=== PATIENT | female | born 1935 | race Caucasian/White ===

== ENCOUNTER → 2016-09-29 | Outpatient (CLI) | payer MEDICARE ==
[~2016-09-29] MED LIST: ACETAMINOPHEN325 MG PO; ADVAIR 250-501 EACH IH; AL-MAG HYDROX-S30 M1 PO; ALBUTEROL 0.5ML IH; ALPRAZOLAM PO; ALPRAZOLAM0.5 MG PO; ASPIRIN PO; ASPIRIN81 M2 PO; ATROVENT NASAL15 ML; AUGMENTIN PO; CALCIUM + D 6001 TA1 PO; CENTRUM SILVER PO; CORGARD PO; DIOVAN HCT 80/11 TAB PO; FISH OIL 1,2001 EAC1 PO; GUAIFENESIN LA600 M1 PO; HARD NAILS2500 MCG PO; HCTZ PO; HYDROCHLOROTHIA25 MG PO; LASIX PO; LEVAQUIN750 MG PO; LOMOTIL TABLET1 TAB PO; LORTAB 10/500 T1 TAB PO; MORPHINE SULFAT30 M3 PO; OMEPRAZOLE40 MG PO; OXYGEN NS; PANTOPRAZOLE SO40 MG PO; PAXIL PO; PERCOCET 10/3251 TAB PO; PRILOSEC40 MG PO; PROAIR HFA8.5 GM IH; REGLAN5 MG PO; SPIRIVA18 MCG INH; SUPER B COMPLEX1 CAP PO; VICODIN 5/500 T1 TAB PO; VITAMIN B12-FO1 EACH PO; WATER PILL; ZANAFLEX4 M1 PO; [UNRECOGNIZED DRUG - OTHER] PO
--- NOTE | ~2016-09-29 | BD1 ---
[facility] A Service of [facility] & [facility] RADIOLOGY TEXT RESULTS PATIENT: SHAKIR HILARIO LOCATION: [facility] : 37 UNIT #: [id number] AGE: [address]: Betsy Fernandez MD SEX: F ORDER DR: [id number] [facility] [address] [facility]. [place], [place] [address] [id number] O MR#: [id number] #: [id number] NAME: SHAKIR HILARIO : 1935 SEX: F STUDY DATE/TIME: 09/29/2016 11:58 UNIT: [facility] ROOM: STUDY DESCRIPTION: BD Dexa Bone Dens 1+ Site Attending Physician: Betsy Fernandez M.D. Referring Physician: Betsy Fernandez M.D. Ordering Physician: Betsy Fernandez M.D. Primary Care Physician: Betsy Fernandez M.D. MEDICAL IMAGING REPORT This report is preliminary unless electronic signature is present EXAM DXA scan, 09/29/2016 HISTORY Status post menopause with no hormone replacement therapy. Osteopenia. Smoking history. Fracture of arm in last 10 years. FINDINGS Bone mineral density in the lumbar spine from L1-L4 was 0.914 g/cm2 which is 1.2 standard deviations below the mean when compared with the young adult reference population which is characteristic of osteopenia. This is 1.5 standard deviations above the mean when compared to the age-matched population. Bone mineral density in the left femoral neck was 0.694 g/cm2 which is 1.4 standard deviations below the mean when compared to the young adult reference population which is characteristic of osteopenia. This is 0.9 standard deviations above the mean when compared to the age-matched population. IMPRESSION Bone mineral density in the lumbar spine and left hip characteristic of osteopenia. Dictated by... Yoshi Schwartz M.D. THIS IS AN ELECTRONICALLY VERIFIED REPORT Yoshi Schwartz M.D. at 09/30/2016 2:10 PM BOBBY/shant TD: 09/29/2016 15:07 [facility] A Service of [facility] & [facility] RADIOLOGY TEXT RESULTS PATIENT: SHAKIR HILARIO LOCATION: [facility] : 37 UNIT #: [id number] AGE: [address]: Betsy Fernandez MD SEX: F ORDER DR: JOB #: [id number] MEDICAL IMAGING REPORT Page 1 of 1 COPY
--- NOTE | ~2016-09-29 | MY11 ---
[facility] A Service [facility] RADIOLOGY TEXT RESULTS PATIENT: SHAKIR HILARIO LOCATION: [facility] : 37 UNIT #: [id number] AGE: [address]: Betsy Fernandez MD SEX: F ORDER DR: [id number] [facility]. [place], [place] [address] [id number] O MR#: [id number] Acc #: [id number] NAME: SHAKIR HILARIO : 1935 SEX: F STUDY DATE/TIME: 09/29/2016 12:07 UNIT: [facility] ROOM: STUDY DESCRIPTION: MY Mammogram Screening Dig Jefry Attending Physician: Betsy Fernandez M.D. Referring Physician: Betsy Fernandez M.D. Ordering Physician: Betsy Fernandez M.D. Primary Care Physician: Betsy Fernandez M.D. MEDICAL IMAGING REPORT This report is preliminary unless electronic signature is present EXAM Bilateral digital screening mammogram with CAD 09/29/2016 INDICATIONS 81-year-old female for routine screening. No reported problems no personal or family history of breast cancer. No surgeries. TECHNIQUE CC and MLO views of the breasts were obtained and reviewed with an FDA-approved CAD device. COMPARISON 07/06/12 04/02/2010 FINDINGS Breast parenchyma is heterogeneously dense. This degrades sensitivity of screening mammography. The pattern is unchanged. Numerous benign appearing calcifications are present. There is no new dominant nodule or mass in either breast. No new suspicious cluster of microcalcifications. Slight interval increase in overall number of benign calcifications bilaterally. IMPRESSION 1. Benign dense mammogram 1 year followup recommended. Patients over the age of 40 are entered into a reminder system with target due date for the next mammogram. A result letter will also be sent to the patient. BIRADS: 2, benign findings Dictated by... [facility] A Service [facility] RADIOLOGY TEXT RESULTS PATIENT: SHAKIR HILARIO LOCATION: [facility] : 37 UNIT #: [id number] AGE: [address]: Betsy Fernandez MD SEX: F ORDER DR: Ollie Gordon M.D. THIS IS AN ELECTRONICALLY VERIFIED REPORT Ollie Gordon M.D. at 09/29/2016 5:24 PM BREANNA/shyam TD: 09/29/2016 13:00 JOB #: [id number] MEDICAL IMAGING REPORT Page 1 of 1 COPY
== END | disposition home or self-care (01) ==
LOC: CWCC 11:42
DX: Z12.31 Encounter for screening mammogram for malignant neoplasm of breast (principal); M81.0 Age-related osteoporosis without current pathological fracture; M85.89 Other specified disorders of bone density and structure, multiple sites
CPT/HCPCS: 77080; G0202